=== PATIENT | male | born 1945 | race Caucasian/White ===

== ENCOUNTER 2021-10-29 06:17 | Emergency (ER) | payer SELFPAY ==
[2021-10-29 06:15] VITALS: BP 134/104; PULSE 77; RESP 18; TEMP 36.7; O2SAT 98
--- NOTE | 2021-10-29 06:24 | PC.NURSE ---
Patient stated he had to use the bathroom. Patient ambulated to the bathroom with a steady gait with his cane. Patient states pain with movement to his legs.
--- NOTE | 2021-10-29 06:38 | PC.NURSE ---
Patient unsure of his medications or allergies.
--- NOTE | 2021-10-29 07:09 | ED.EXTPRO ---
HPI - Extremity Problem General Chief complaint: Extremity Problem,Nontraumatic Stated complaint: Bilat leg pain for 12 years Time Seen by Provider: 10/29/21 06:53 Source: patient and RN notes reviewed History of Present Illness HPI Narrative: 76-year-old male presenting to the emergency department for evaluation of bilateral leg pain that has been ongoing for approximately 12 years. Patient had been at an outside hospital and was found to be sleeping in the bathroom. Patient was kicked out and stated he wanted to come here for evaluation. On initial evaluation patient is resting comfortably in the bed. Nursing staff reports that the patient was able to ambulate to the bed without issue. Patient was fully dressed. When attempting to undress the patient to fully examine his legs the patient stated he would prefer to be discharged. Review of Systems Review of Systems: patient declined ROS Exam Narrative: patient declined physical exam Course Course Emergency Course: Patient declined any medical work-up and states he wants to go back home. Patient was able to ambulate to the emergency department on his own without issues. Vital Signs Vital signs: Vital Signs Temperature 98.0 F 10/29/21 06:15 Pulse Rate 77 10/29/21 06:15 Respiratory Rate 18 10/29/21 06:15 Blood Pressure 134/104 H 10/29/21 06:15 Pulse Oximetry 98 10/29/21 06:15 Temperature 98.0 F 10/29/21 06:15 Pulse Rate 77 10/29/21 06:15 Respiratory Rate 18 10/29/21 06:15 Blood Pressure 134/104 H 10/29/21 06:15 Pulse Oximetry 98 10/29/21 06:15 Discharge Plan Discharge Clinical Impression: Chronic leg pain Qualifiers: Laterality: bilateral Qualified Code(s): M79.604 - Pain in right leg Patient Disposition: Left Against Medical Advice Condition: Stable
--- NOTE | 2021-10-29 07:10 | PC.NURSE ---
attempted to help pt undress for exam and pt refuses. made aware that if he wants treatment he needs to be placed in gown. pt made aware that he cant just sleep here. pt states he will leave then. after some time pt leaves dept with security. charge entry specialist provided pt with list of homeless shelters. pt ambulatory with cane. pt verbally abusive to staff.
== END 2021-10-29 07:30 | disposition left against medical advice (07) ==
LOC: ANHED 07:29
PROVIDERS: Emergency Provider Emergency Medicine
DX: M79.605 Pain in left leg (principal); M79.604 Pain in right leg
CPT/HCPCS: 99281